=== PATIENT | female | born 1960 | race Caucasian/White ===

== ENCOUNTER 2019-04-11 15:59 | Emergency (ER) | payer OTHER ==
[~2019-04-11] VITALS: Ht 152.4 cm; Wt 64.9 kg
[2019-04-11 16:07] VITALS: Ht 152.4 cm; Wt 64.9 kg
[2019-04-11 17:20] LABS: BASOPHIL % 0.5 % (0-2); PLATELET COUNT 315 x10^3mcL (130-400)
[2019-04-11 17:24] LABS: RED CELL DISTRIBUTION WIDTH 15.2 % (11.5-14.5)
[2019-04-11 17:32] LABS: CALCIUM 9.1 mg/dL (8.5-10.1); CARBON DIOXIDE 27.7 mmol/L (21-32); CREATININE SERUM 1.2 mg/dL (0.6-1.0); POTASSIUM SERUM 4.5 mmol/L (3.5-5.1)
[2019-04-11 17:37] LABS: ALBUMIN 3.7 g/dL (3.4-5.0); BILIRUBIN TOTAL 0.5 mg/dL (0.20-1.00); TOTAL PROTEIN, SERUM 8.2 g/dL (6.4-8.2)
[2019-04-11 17:47] LABS: FREE T4 1.08 ng/dL (0.76-1.46); FREE THYROXINE INDEX 3.2 ug/dL (1.4-4.5); T3 TOTAL 1.41 ng/mL; T4(THYROXINE) 9.9 ug/dL (4.7-13.3)
[2019-04-11 20:28] VITALS: BP 130/73
== END 2019-04-11 20:28 | disposition home or self-care (01) ==
LOC: ED 15:59
PROVIDERS: Emergency Medicine
DX: C76.0 Malignant neoplasm of head, face and neck (principal); I83.93 Asymptomatic varicose veins of bilateral lower extremities; E78.00 Pure hypercholesterolemia, unspecified
CPT/HCPCS: 36415; 84439; Q0092; Q9967